=== PATIENT | female | born 1950 | race Caucasian/White ===

== ENCOUNTER 2020-07-27 00:52 | Inpatient (IN) ==
[2020-07-27] MEDS ORDERED: NS 0.9% 1000 ml BAG 1,000 ML IV ONE (01:24)
[2020-07-27] MEDS ORDERED: Ondansetron 4 mg VIAL 2 MG/ML 2 ml VIAL IV ONE (01:47)
[2020-07-27 01:58] LABS: ABS Eosinophils 0.1 10^3/ul (0-0.6); ABS Lymphocytes 0.7 10^3/ul (1.0-4.8); ABS Monocytes 1.3 10^3/ul (0-0.8); Eosinophil % 0.3 %; Hematocrit 46 % (35-47); Hemoglobin 15.6 g/dL (12.0-16.0); Lymphocyte % 3.8 %; Mean Corpuscular HGB Conc 34 g/dL (31-36); Mean Corpuscular Hemoglobin 29 pg (27-31); Mean Corpuscular Volume 85 fL (80-97); Platelet Count 193 10^3/uL (150-450); Red Blood Count 5.39 10^6 /uL (3.70-4.87); Red Cell Distribution Width 14 % (10-15); White Blood Count 18.1 10^3/uL (3.5-10.8)
[2020-07-27] MEDS: Morphine 4 MG/ML VIAL (1 ml) IV ONE ×2 (02:01→15:03)
[2020-07-27 02:08] LABS: Activated Partial Thrombo Time 30.2 seconds (26.0-38.0); INR 1.18 (0.82-1.09)
[2020-07-27 02:14] LABS: ALT 56 U/L (7-52); AST 200 U/L (13-39); Albumin/Globulin Ratio 1.3 (1-3); Alkaline Phosphatase 68 U/L (34-104); Anion Gap 14 mmol/L (2-11); BUN/Creatinine Ratio 38.6 (8-20); Blood Urea Nitrogen 34 mg/dL (6-24); C Reactive Protein 135.08 mg/L (<8.01); CO2 Carbon Dioxide 22 mmol/L (22-32); Calcium 10.2 mg/dL (8.6-10.3); Chloride 99 mmol/L (101-111); EGFR African American 77.6 (>60); EGFR Non-African American 64.1 (>60); Globulin 3.1 g/dL (2-4); Glucose 137 mg/dL (70-100); Lipase < 10 U/L (11.0-82.0); Magnesium 2.4 mg/dL (1.9-2.7); Potassium 3.9 mmol/L (3.5-5.0); Sodium 135 mmol/L (135-145); Total Protein 7.1 g/dL (6.4-8.9)
[2020-07-27 02:19] LABS: BNP 172 pg/mL (<=100)
[2020-07-27 02:39] LABS: Creatine Kinase 6565 U/L (10-223)
[2020-07-27] MEDS ORDERED: Ondansetron 4 mg VIAL 2 MG/ML 2 ml VIAL IV PRN ×2 (04:59→16:00)
[2020-07-27] MEDS ORDERED: Enoxaparin 30 MG/0.3 ML SYR SUBCUT SCH ×2 (05:00→07:00)
[2020-07-27] MEDS ORDERED: Lactated Ringers 1000 ml BAG 1,000 ML IV SCH (05:00)
[2020-07-27] MEDS ORDERED: NS 0.9% 500 ml BAG 500 ML IV SCH (06:00)
[2020-07-27] MEDS ORDERED: NS 0.9% 1000 ml BAG 1,000 ML IV SCH (06:30)
[2020-07-27 08:53] LABS: Urine Appearance Turbid; Urine Bilirubin Negative (Negative); Urine Blood 3+ (Negative); Urine Color Yellow; Urine Glucose Negative (Negative); Urine Ketones 1+ (Negative); Urine Nitrite Positive (Negative); Urine Protein 1+(30 mg/dL) (Negative); Urine Specific Gravity 1.024 (1.010-1.030); Urine Urobilinogen Negative (Negative)
[2020-07-27 09:02] LABS: Urine Bacteria 3+ (Absent); Urine Red Blood Cell 3+(>10/hpf) (Absent); Urine White Blood Cell 3+(>20/hpf) (Absent)
[2020-07-27] MEDS: Pravastatin 20 mg TAB (NF) PO SCH (10:00)
[2020-07-27] MEDS ORDERED: cefTRIAXone 1 gm/50 mL NS BAG 1 GM/50 ML BAG IVPB SCH (10:00)
[2020-07-27] MEDS: Morphine 2 MG/ML SYRINGE IV PRN ×3 (13:04→23:45)
[2020-07-27] MEDS ORDERED: Sodium Citrate/Citric Acid LIQ 15 ML UDC ONE (13:31)
[2020-07-27] MEDS ORDERED: Sodium Citrate/Citric Acid LIQ 15 ML UDC PO ONE (13:45)
[2020-07-27] MEDS ORDERED: Lidocaine 2% PF 5 ML VIAL ONE (13:51)
[2020-07-27] MEDS ORDERED: Propofol 10 MG/ML 20 ML BTL ONE (13:51)
[2020-07-27] MEDS ORDERED: Bupivacaine 0.5% SDV PF 30ML VIAL ONE (13:53)
[2020-07-27] MEDS ORDERED: fentaNYL 250 mcg/5 ml 50 MCG/ML 5 ml VIAL (250 MCG) ONE (13:58)
[2020-07-27] MEDS ORDERED: Ketamine HCL 50 mg/ml 10 ml VIAL (500 MG) ONE (13:59)
[2020-07-27] MEDS ORDERED: Midazolam 2 mg/2 ml VIAL 1 mg/ml 2 ml VIAL (2 mg) ONE ×2 (14:16→15:46)
[2020-07-27] MEDS ORDERED: Morphine 2 MG/ML SYRINGE IV ONE (14:52)
[2020-07-27] MEDS ORDERED: Morphine 4 MG/ML VIAL (1 ml) ONE (15:00)
[2020-07-27] MEDS ORDERED: ceFAZolin 2 GM PREMIX 2 GM/50 ML BAG ONE (15:08)
[2020-07-27] MEDS ORDERED: Naloxone 0.4 mg VIAL 0.4 mg/ml 1 ml VIAL IV PRN (16:00)
[2020-07-27] MEDS ORDERED: fentaNYL 100 mcg/2 ml 50 MCG/ML VIAL IV PRN (16:00)
[2020-07-27] MEDS ORDERED: Acetaminophen IV 1 GM/100ML 1,000 MG/100 ML VIAL IVPB PRN (16:00)
[2020-07-27] MEDS ORDERED: Vancomycin 1,000 MG VIAL ONE (16:25)
[2020-07-27] MEDS ORDERED: Ondansetron 4 mg VIAL 2 MG/ML 2 ml VIAL ONE (16:41)
[2020-07-27] MEDS ORDERED: Phenylephrine 40 mcg/mL 10mL (400mcg) SYRINGE ONE (16:50)
[2020-07-27] MEDS ORDERED: Magnesium Hydroxide LIQ 30 ML UDC PO PRN (18:09)
[2020-07-27] MEDS ORDERED: Polyethylene Glycol 3350 17 GM PACKET PO PRN (18:09)
[2020-07-27] MEDS ORDERED: Senna TAB 8.6 mg TAB PO PRN (18:09)
[2020-07-27] MEDS: Magnesium Hydroxide LIQ 30 ML UDC PO SCH (21:00)
[2020-07-27 21:53] LABS: Potassium 4.2 mmol/L (3.5-5.0)
[2020-07-27 21:55] LABS: BUN/Creatinine Ratio 41.9 (8-20); EGFR African American 94.7 (>60); EGFR Non-African American 78.3 (>60)
[2020-07-27 22:40] LABS: Calcium 8.3 mg/dL (8.6-10.3)
[2020-07-27 22:44] LABS: Potassium 4.9 mmol/L (3.5-5.0)
[2020-07-27 22:46] LABS: EGFR African American 96.2 (>60); EGFR Non-African American 79.5 (>60)
[2020-07-27] MEDS: ceFAZolin 1 GM X 3 DOSES POST-OP Q8H (AddVan) IVPB SCH (23:35)
[2020-07-28] MEDS: Morphine 2 MG/ML SYRINGE IV PRN ×4 (03:00→13:26)
[2020-07-28] MEDS ORDERED: NS 0.9% 1,000 ML IV ONE (04:00)
[2020-07-28 06:03] LABS: Hematocrit 32 % (35-47); Hemoglobin 10.9 g/dL (12.0-16.0); Mean Corpuscular Hemoglobin 29 pg (27-31); Mean Corpuscular Volume 86 fL (80-97); Red Blood Count 3.72 10^6 /uL (3.70-4.87); White Blood Count 9.3 10^3/uL (3.5-10.8)
[2020-07-28 06:04] LABS: Mean Corpuscular HGB Conc 34 g/dL (31-36); Mean Platelet Volume 9.4 fL (7.4-10.4); Platelet Count 144 10^3/uL (150-450); Red Cell Distribution Width 14 % (10-15)
[2020-07-28 07:21] LABS: BUN/Creatinine Ratio 39.6 (8-20); Calcium 8.1 mg/dL (8.6-10.3); EGFR African American 139.2 (>60); EGFR Non-African American 115.1 (>60); Potassium 4.1 mmol/L (3.5-5.0)
[2020-07-28] MEDS: ceFAZolin 1 GM X 3 DOSES POST-OP Q8H (AddVan) IVPB SCH ×2 (08:42→16:18)
[2020-07-28] MEDS: Magnesium Hydroxide LIQ 30 ML UDC PO SCH ×2 (09:05→21:49)
[2020-07-28] MEDS: Pravastatin 20 mg TAB (NF) PO SCH (09:08)
[2020-07-28] MEDS: cefTRIAXone 1 gm/50 mL NS BAG 1 GM/50 ML BAG IVPB SCH (10:21)
[2020-07-28] MEDS: Enoxaparin 40 MG/0.4 ML SYR SUBCUT SCH (12:27)
[2020-07-28] MEDS ORDERED: Morphine 2 MG/ML SYRINGE IV PRN (17:56)
[2020-07-28] MEDS ORDERED: NS 0.9% 1000 ml BAG 1,000 ML IV SCH (19:00)
[2020-07-28] MEDS: PRAVASTATIN 20 MG PO SCH (21:46)
[2020-07-29] MEDS: ceFAZolin 1 GM X 3 DOSES POST-OP Q8H (AddVan) IVPB SCH ×3 (00:07→16:43)
[2020-07-29] MEDS ORDERED: Morphine 2 MG/ML SYRINGE IV ONE (00:46)
[2020-07-29 05:39] LABS: Hematocrit 29 % (35-47); Hemoglobin 9.8 g/dL (12.0-16.0); Mean Platelet Volume 8.7 fL (7.4-10.4); Platelet Count 142 10^3/uL (150-450)
[2020-07-29 05:41] LABS: Hematocrit 28 % (35-47); Hemoglobin 9.8 g/dL (12.0-16.0); Mean Platelet Volume 8.6 fL (7.4-10.4); Platelet Count 141 10^3/uL (150-450)
[2020-07-29 05:56] LABS: BUN/Creatinine Ratio 27.3 (8-20); Calcium 7.9 mg/dL (8.6-10.3); EGFR African American 172.6 (>60); EGFR Non-African American 142.6 (>60); Potassium 3.8 mmol/L (3.5-5.0)
[2020-07-29] MEDS ORDERED: Lactated Ringers 1000 ml BAG 1,000 ML IV SCH ×2 (11:00→17:20)
[2020-07-29] MEDS: cefTRIAXone 1 gm/50 mL NS BAG 1 GM/50 ML BAG IVPB SCH (11:11)
[2020-07-29] MEDS: Magnesium Hydroxide LIQ 30 ML UDC PO SCH ×2 (11:11→23:05)
[2020-07-29] MEDS: Enoxaparin 40 MG/0.4 ML SYR SUBCUT SCH (13:16)
[2020-07-29] MEDS: PRAVASTATIN 20 MG PO SCH (23:05)
[2020-07-30 05:11] LABS: Hematocrit 28 % (35-47); Hemoglobin 9.7 g/dL (12.0-16.0); Mean Corpuscular HGB Conc 35 g/dL (31-36); Mean Corpuscular Hemoglobin 29 pg (27-31); Mean Corpuscular Volume 85 fL (80-97); Red Blood Count 3.32 10^6 /uL (3.70-4.87); Red Cell Distribution Width 14 % (10-15)
[2020-07-30 05:18] LABS: Albumin 2.2 g/dL (3.2-5.2); BUN/Creatinine Ratio 21.1 (8-20); Calcium 7.7 mg/dL (8.6-10.3); EGFR African American 204.4 (>60); EGFR Non-African American 168.9 (>60); Globulin 2.3 g/dL (2-4); Magnesium 1.8 mg/dL (1.9-2.7); Potassium 3.3 mmol/L (3.5-5.0); Total Bilirubin 0.3 mg/dL (0.2-1.0); Total Protein 4.5 g/dL (6.4-8.9)
[2020-07-30 05:26] LABS: Mean Platelet Volume 9.3 fL (7.4-10.4); Platelet Count 173 10^3/uL (150-450)
[2020-07-30] MEDS ORDERED: Potassium Chlor 20 meq TAB.ER PO ONE (07:43)
[2020-07-30] MEDS ORDERED: Magnesium Sulfate 2 gm BAG 2 GM/50 ML BAG IVPB ONE (07:44)
[2020-07-30] MEDS: Magnesium Hydroxide LIQ 30 ML UDC PO SCH ×2 (10:52→22:19)
[2020-07-30] MEDS: Enoxaparin 40 MG/0.4 ML SYR SUBCUT SCH (12:46)
[2020-07-30] MEDS: cefTRIAXone 1 gm/50 mL NS BAG 1 GM/50 ML BAG IVPB SCH (12:46)
[2020-07-30] MEDS: PRAVASTATIN 20 MG PO SCH (22:25)
[2020-07-31 07:12] LABS: Hematocrit 31 % (35-47); Hemoglobin 10.4 g/dL (12.0-16.0); Mean Corpuscular HGB Conc 34 g/dL (31-36); Mean Corpuscular Hemoglobin 29 pg (27-31); Mean Corpuscular Volume 86 fL (80-97); Mean Platelet Volume 8.3 fL (7.4-10.4); Platelet Count 232 10^3/uL (150-450); Red Blood Count 3.63 10^6 /uL (3.70-4.87); Red Cell Distribution Width 14 % (10-15); White Blood Count 13.7 10^3/uL (3.5-10.8)
[2020-07-31 07:28] LABS: Albumin 2.4 g/dL (3.2-5.2); Albumin/Globulin Ratio 0.9 (1-3); BUN/Creatinine Ratio 17.1 (8-20); Calcium 7.9 mg/dL (8.6-10.3); EGFR African American 224.7 (>60); EGFR Non-African American 185.7 (>60); Globulin 2.6 g/dL (2-4); Potassium 3.7 mmol/L (3.5-5.0); Total Bilirubin 0.7 mg/dL (0.2-1.0)
[2020-07-31] MEDS: Magnesium Hydroxide LIQ 30 ML UDC PO SCH ×2 (08:56→21:35)
[2020-07-31] MEDS: cefTRIAXone 1 gm/50 mL NS BAG 1 GM/50 ML BAG IVPB SCH (09:35)
[2020-07-31] MEDS: Enoxaparin 40 MG/0.4 ML SYR SUBCUT SCH (12:17)
[2020-07-31 14:48] LABS: TSH Ultra Thyroid Stim Horm 2.69 mcIU/mL (0.34-5.60)
[2020-07-31] MEDS: PRAVASTATIN 20 MG PO SCH (21:36)
[2020-08-01 06:08] LABS: Hematocrit 29 % (35-47); Hemoglobin 9.6 g/dL (12.0-16.0); Mean Corpuscular HGB Conc 34 g/dL (31-36); Mean Corpuscular Hemoglobin 29 pg (27-31); Mean Corpuscular Volume 85 fL (80-97); Mean Platelet Volume 7.4 fL (7.4-10.4); Platelet Count 274 10^3/uL (150-450); Red Blood Count 3.36 10^6 /uL (3.70-4.87); Red Cell Distribution Width 14 % (10-15)
[2020-08-01 06:23] LABS: Potassium 3.5 mmol/L (3.5-5.0)
[2020-08-01 06:24] LABS: BUN/Creatinine Ratio 19.4 (8-20); Calcium 7.9 mg/dL (8.6-10.3); EGFR African American 217.6 (>60); EGFR Non-African American 179.8 (>60)
[2020-08-01] MEDS: Magnesium Hydroxide LIQ 30 ML UDC PO SCH ×2 (08:25→19:38)
[2020-08-01] MEDS: Enoxaparin 40 MG/0.4 ML SYR SUBCUT SCH (11:47)
[2020-08-01] MEDS ORDERED: Iohexol 350 (CONTRAST) 500 ML MDV IV ONE (16:12)
[2020-08-01] MEDS: PRAVASTATIN 20 MG PO SCH (23:38)
[2020-08-02] MEDS ORDERED: Lactated Ringers 1000 ml BAG 1,000 ML IV SCH (10:00)
[2020-08-02] MEDS: Magnesium Hydroxide LIQ 30 ML UDC PO SCH ×2 (10:30→20:45)
[2020-08-02] MEDS: Enoxaparin 40 MG/0.4 ML SYR SUBCUT SCH (12:38)
[2020-08-02] MEDS: ceFAZolin 1 GM ADVAN 1 GM in NS 0.9% 50 ML 50 ML IVPB SCH ×2 (18:43→22:24)
[2020-08-02] MEDS: PRAVASTATIN 20 MG PO SCH (20:30)
[2020-08-03] MEDS: ceFAZolin 1 GM ADVAN 1 GM in NS 0.9% 50 ML 50 ML IVPB SCH (08:55)
[2020-08-03] MEDS: Magnesium Hydroxide LIQ 30 ML UDC PO SCH (09:00)
[2020-08-03 09:16] LABS: Hematocrit 29 % (35-47); Hemoglobin 9.9 g/dL (12.0-16.0); Mean Corpuscular HGB Conc 34 g/dL (31-36); Mean Corpuscular Hemoglobin 29 pg (27-31); Mean Corpuscular Volume 85 fL (80-97); Mean Platelet Volume 7.1 fL (7.4-10.4); Platelet Count 385 10^3/uL (150-450); Red Blood Count 3.45 10^6 /uL (3.70-4.87); Red Cell Distribution Width 14 % (10-15); White Blood Count 13.2 10^3/uL (3.5-10.8)
[2020-08-03 11:29] VITALS: BP 127/72
[2020-08-03] MEDS: Enoxaparin 40 MG/0.4 ML SYR SUBCUT SCH (13:15)
== END 2020-08-03 16:50 | DRG 522 ==
LOC: ED 00:52 → SSU 04:49 → ED 06:12
PROVIDERS: ADMIT Internal Medicine; ATTEND Internal Medicine